=== PATIENT | female | born 1995 | race Caucasian/White ===

== ENCOUNTER 2018-11-09 19:53 | Emergency (ER) | payer OTHER ==
[~2018-11-09] VITALS: Ht 154.9 cm; Wt 50.3 kg
[2018-11-09 20:08] VITALS: BP 131/84
[2018-11-09] MEDS ORDERED: ACETAMINOPHEN 325 MG TABLET ONE (20:26)
[2018-11-09] MEDS ORDERED: ACETAMINOPHEN 325 MG TABLET PO ONE (20:30)
--- NOTE | 2018-11-09 20:47 | NUR ---
URINE COLLECTED AND SENT TO LAB
--- NOTE | 2018-11-09 20:52 | NUR ---
PT TAKEN TO RADIOLOGY FOR XRAY VIA WHEELCHAIR
== END 2018-11-09 21:38 | disposition home or self-care (01) ==
LOC: ER 19:58
DX: S02.2XXA Fracture of nasal bones, initial encounter for closed fracture (principal); W18.09XA Striking against other object with subsequent fall, initial encounter; Y93.41 Activity, dancing; Y92.89 Other specified places as the place of occurrence of the external cause; Y99.8 Other external cause status
CPT/HCPCS: 70160-TC; 84703-TC